=== PATIENT | male | born 1955 | race Caucasian/White ===

== ENCOUNTER 2017-03-25 13:56 | Observation (INO) ==
[2017-03-25] MEDS ORDERED: Nitroglycerin 0.4 MG TAB.SUBL SL ONE (14:34)
[2017-03-25] MEDS ORDERED: Aspirin 81 MG TAB.CHEW PO ONE (14:34)
--- NOTE | 2017-03-25 14:38 | Emergency Department Note ---
Disposition Clinical Impression: Chest pain of uncertain etiology, Dyspnea Disposition: Admitted As Inpatient Condition: Critical Referrals: Mateo Francois CNP [Primary Care Provider] - Forms: ED Satisfaction Letter Time of Disposition: 16:01 Chest Pain HPI - General Chief Complaint: ED Shortness of Breath/Dyspnea Stated Complaint: ANG/CP Time Seen by Provider: 03/25/17 14:12 Source: patient Limitations: no limitations Vital Signs Reviewed: Yes Nursing Notes Reviewed: Yes - History of Present Illness HPI Narrative: Mr. Martínez, 61-year-old male, presents from home for evaluation of chest pain. Onset approximately one hour ago. Described as sharp, stabbing, substernal, with radiation down his left arm as well as interscapular leak and to his left jaw. Associated with dyspnea. He has had similar symptoms intermittently over the past week lasting approximately 30 minutes per episode and unrelated to rest versus exertion. His symptoms previously improved after a single sublingual nitroglycerin. Patient has no history of ACS; he was prescribed a nitroglycerin from a physician when he reported chest pain to that physician with no additional workup. PMH: Hypertension, hyperlipidemia, diabetes. No history of CAD, ACS, dysrhythmia, COPD. Habits: No smoking, no EtOH, no illicit substances. Severity scale (1-10): 7 - Related Data Home Medications Medication Instructions Recorded Confirmed Aspirin 81 mg PO DAILY 03/19/15 03/19/15 Fluticasone Propionate Nasal 1 spray NS DAILY 03/19/15 03/19/15 [Flonase] Nitroglycerin [Nitrostat] 0.4 mg SL Q5M PRN 03/19/15 03/19/15 Pravastatin Sodium [Pravachol] 40 mg PO HS 03/19/15 03/19/15 Qnasl 160 mcg NS DAILY 03/19/15 03/19/15 Quinapril/Hydrochlorothiazide 1 each PO DAILY 03/19/15 03/19/15 [Accuretic 10-12.5 mg Tablet] Sertraline [Zoloft] 100 mg PO DAILY 03/19/15 03/19/15 Tamsulosin [Flomax] 0.4 mg PO DAILY 03/19/15 03/19/15 Zolpidem Tartrate [Ambien Cr] 12.5 mg PO HS 03/19/15 03/19/15 metFORMIN [Glucophage] 1,000 mg PO HS 03/19/15 03/19/15 Previous Rx's Medication Instructions Recorded OxyCODONE/APAP 325 [Percocet 2 each PO Q4HR PRN #15 tablet 03/19/15 10325] Allergies Allergy/AdvReac Type Severity Reaction Status Date / Time No Known Allergies Allergy Verified 03/19/15 07:12 All systems ED: reviewed and negative except as stated. Review of Systems: As Per HPI Chest Pain PMH - Past Medical History Medical history: Reports: diabetes, hypertension, other Surgical history: Reports: appendectomy, other Psychiatric history: Reports: no psych history - Social History Smoking Status: Former smoker Alcohol use: Reports: none Drug use: Reports: none Physical Exam Vital Signs Reviewed General: Patient is alert, oriented, and in no acute distress. HEENT: No facial asymmetry. Head is normocephalic and atraumatic. Oral mucosa moist. Trachea midline. Cardiovascular: Heart regular rate and rhythm without clicks, rubs, gallops, or murmurs. No JVD. PMI nondisplaced. Respiratory: Symmetric chest rise with good respiratory effort. Bilateral breath sounds are clear without wheezing, crackles, or rhonchi. Abdomen: Obese. Bowel sounds present normoactive x-4 quadrants. Abdomen is soft, nondistended, and nontender. No organomegaly noted. Neuro: GCS 15. Skin: Warm, dry, intact. Psych: Patient's affect is appropriate for situation. - General Limitations: no limitations General appearance: alert, in no apparent distress Course Course Narrative: Patient presents from home for evaluation of chest pain. Story is highly suspicious for ACS. Patient did have a stress test one week ago at [facility]; records obtained. Pretesting hypertension was exacerbated by the test. Patient was chest pain-free and it was negative for ischemia. Even so, strongly recommend admission for chest pain rule out ACS. Chest x-ray unremarkable. Troponin 0.01; below the upper limit of normal. EKG unchanged and unremarkable. Patient self administered 2 sublingual nitroglycerin while in the amount. His pain improved substantially with the second. Nitroglycerin was taken 4-5 minutes apart. Patient received a single sublingual nitroglycerin while in the emergency department which completely resolved his pain. Systolic blood pressure after this was 99. Gentle IV fluids began. I discussed with the patient by clinical concerns and he is in agreement to coming into the hospital for continued evaluation. I discussed the patient with the admitting hospitalist, Dr. James, who agrees to accept the patient for continued evaluation and management. Vital Signs Temperature 97.7 F 03/25/17 13:57 Pulse Rate 80 03/25/17 13:57 Respiratory Rate 16 03/25/17 13:57 Blood Pressure 115/67 03/25/17 13:57 O2 Sat by Pulse Oximetry 95 03/25/17 13:57 Temperature 97.7 F 03/25/17 13:57 Pulse Rate 74 03/25/17 15:00 Respiratory Rate 14 03/25/17 15:00 Blood Pressure 99/69 03/25/17 15:00 O2 Sat by Pulse Oximetry 96 03/25/17 15:00 Oxygen Delivery Oxygen Delivery Room Air Chest Pain - Lab Data Result diagrams: 03/25/17 14:40 03/25/17 14:40 Lab Results 03/25/17 03/25/17 03/25/17 Range/Units 14:40 14:40 14:40 WBC 8.9 (4.3-11.1) K/mcL RBC 4.58 (4.19-5.50) M/mcL Hgb 13.7 (12.9-16.9) g/dL Hct 41.6 (37.5-50.1) % MCV 90.8 (83.0-100.0) fL MCH 29.9 (28.0-33.3) pg MCHC 32.9 (31.6-35.5) g/dL RDW 12.8 (11.5-14.5) % Plt Count 225 (140-400) K/mcL MPV 11.1 (9.4-12.4) fL Immature Gran % 0.3 (0-4) % Seg Neutrophils % 65.3 % Lymphocytes % 25.5 % Monocytes % 5.9 % Eosinophils % 1.9 % Basophils % 1.1 % Neutrophils # 5.8 (1.6-8.9) K/mcL Lymphocytes # 2.3 (0.6-4.6) K/mcL Monocytes # 0.5 (0.0-1.3) K/mcL Eosinophils # 0.2 (0.0-0.6) K/mcL Basophils # 0.1 (0.0-0.2) K/mcL PT 13.3 H (9.4-12.1) Seconds INR 1.2 APTT 29.3 (26.0-36.0) Seconds Sodium 134 L (136-145) mEq/L Potassium 4.5 (3.5-4.5) mEq/L Chloride 99 (98-109) mEq/L Carbon Dioxide 22 (19-29) mEq/L BUN 14 (8-26) mg/dL Creatinine 1.38 H (0.72-1.25) mg/dL Est GFR ( Amer) > 60 (> 60) Est GFR (Non-Af Amer) 53 L (> 60) BUN/Creatinine Ratio 10 (6-26) Glucose 157 H (70-99) mg/dL Calculated Osmolality 282 (280-300) Calcium 9.9 (8.6-10.8) mg/dL Troponin I (0-0.03) ng/mL 03/25/17 Range/Units 14:40 WBC (4.3-11.1) K/mcL RBC (4.19-5.50) M/mcL Hgb (12.9-16.9) g/dL Hct (37.5-50.1) % MCV (83.0-100.0) fL MCH (28.0-33.3) pg MCHC (31.6-35.5) g/dL RDW (11.5-14.5) % Plt Count (140-400) K/mcL MPV (9.4-12.4) fL Immature Gran % (0-4) % Seg Neutrophils % % Lymphocytes % % Monocytes % % Eosinophils % % Basophils % % Neutrophils # (1.6-8.9) K/mcL Lymphocytes # (0.6-4.6) K/mcL Monocytes # (0.0-1.3) K/mcL Eosinophils # (0.0-0.6) K/mcL Basophils # (0.0-0.2) K/mcL PT (9.4-12.1) Seconds INR APTT (26.0-36.0) Seconds Sodium (136-145) mEq/L Potassium (3.5-4.5) mEq/L Chloride (98-109) mEq/L Carbon Dioxide (19-29) mEq/L BUN (8-26) mg/dL Creatinine (0.72-1.25) mg/dL Est GFR ( Amer) (> 60) Est GFR (Non-Af Amer) (> 60) BUN/Creatinine Ratio (6-26) Glucose (70-99) mg/dL Calculated Osmolality (280-300) Calcium (8.6-10.8) mg/dL Troponin I 0.01 (0-0.03) ng/mL Heart Score - Score History: Highly Suspicious EKG: Non Specific repolarisation Disturbance Age: 45-65 Risk Factors: Equal/Greater than 3 risk factor or history of atherosclerotic disease Troponin: Less than normal limit HEART Score Total: 6 Attestation Statement - Attestation Attestation: Patient was seen with resident physician. I reviewed the history, physical, assessment and plan, and agree with the findings. I also personally evaluated this patient and had [id number] time with this patient. 61-year-old male presents to the emergency department with chest pain. Patient's had ongoing chest pain a pressure sensation in mid to left side of his chest radiating to his left arm associated with shortness of breath for some time. He said episodes last usually 5-15 minutes. He said today's lasted well over an hour. He has nitroglycerin at home. He said he took 200 resolved the pain. Patient apparently has a stress test approximately week ago at an outside facility. This test we reviewed the results and found that there was no abnormalities noted. Patient currently is pain-free. On examination vital signs are stable. ENT is unremarkable. Heart and lungs normal. Abdomen is soft and nontender. Extremities unremarkable. Neurologically intact. ED course labs did not reveal any acute abnormalities. EKG showed no acute ischemic changes. Chest x- ray was unremarkable and there is no acute disease process. Even though the patient has had a recent stress test his symptoms are very concerning for cardiac type disease. Both in terms of the description and resolution with nitroglycerin I feel that the patient requires additional evaluation and treatment. We will admit to the hospitalist service for additional evaluation and treatment. Hemodynamically he remained stable while in the emergency department. I agree with the resident physician assessment and plan.
[2017-03-25 14:45] LABS: Basophils # 0.1 K/mcL (0.0-0.2); Basophils % 1.1 %; Eosinophils # 0.2 K/mcL (0.0-0.6); Eosinophils % 1.9 %; Hematocrit 41.6 % (37.5-50.1); Hemoglobin 13.7 g/dL (12.9-16.9); Immature Granulocytes % 0.3 % (0-4); Lymphocytes # 2.3 K/mcL (0.6-4.6); Lymphocytes % 25.5 %; Mean Corpuscular HGB Conc 32.9 g/dL (31.6-35.5); Mean Corpuscular Hemoglobin 29.9 pg (28.0-33.3); Mean Corpuscular Volume 90.8 fL (83.0-100.0); Mean Platelet Volume 11.1 fL (9.4-12.4); Monocytes # 0.5 K/mcL (0.0-1.3); Monocytes % 5.9 %; Neutrophils # 5.8 K/mcL (1.6-8.9); Platelet Count 225 K/mcL (140-400); Red Blood Count 4.58 M/mcL (4.19-5.50); Red Cell Distribution Width 12.8 % (11.5-14.5); Segmented Neutrophils % 65.3 %
[2017-03-25 14:52] LABS: INR 1.2; Prothrombin Time 13.3 Seconds (9.4-12.1)
[2017-03-25 14:55] LABS: Activated Partial Thrombo Time 29.3 Seconds (26.0-36.0)
[2017-03-25 14:58] LABS: BUN/Creatinine Ratio 10 (6-26); Blood Urea Nitrogen 14 mg/dL (8-26); Calcium 9.9 mg/dL (8.6-10.8); Carbon Dioxide 22 mEq/L (19-29); Chloride 99 mEq/L (98-109); Glucose 157 mg/dL (70-99); Osmolality,Calculated 282 (280-300); Potassium 4.5 mEq/L (3.5-4.5); Sodium 134 mEq/L (136-145); eGFR For African Americans > 60 (> 60); eGFR For Non-African Americans 53 (> 60)
[2017-03-25] MEDS ORDERED: 0.9 % Sodium Chloride 1,000 ML IVC ONE (15:05)
[2017-03-25] MEDS ORDERED: Acetaminophen 325 MG TABLET PO PRN (17:28)
[2017-03-25] MEDS ORDERED: Naloxone 0.4 MG/ML INJ IVP PRN (17:28)
[2017-03-25] MEDS ORDERED: Nitroglycerin 0.4 MG TAB.SUBL SL PRN (17:32)
--- NOTE | 2017-03-25 17:47 | Internal Med History&Physical ---
Date of Encounter: 03/25/17 Time of Encounter: 17:43 Assessment and Plan (1) Chest pain of uncertain etiology Current visit: Yes Status: Acute 61/male Came to emergency room for chest pain. Heart score: 4 ZIYAD score: 3 Noted that patient has a MEERA. EKG unremarkable. Plan: Admit as observation. Aspirin/simvastatin/metoprolol Echocardiogram Cycle troponin If the troponin negative/echocardiogram within normal limits: Please consider stress test. If troponins are elevated and please call cardiology. Repeat labs tomorrow to evaluate renal function. (2) Dyspnea Current visit: Yes Status: Acute At this time I am not sure what is the reason for underlying dyspnea it can be multifactorial. We will closely observe this patient. We will get echocardiogram done. Qualifiers: Dyspnea type: unspecified Qualified Code(s): R06.00 - Dyspnea, unspecified (3) Diabetes mellitus Current visit: Yes Status: Acute Patient is type 2 diabetes mellitus and is presently on insulin. We will resume home medication. Close monitoring of blood sugar . 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 Qualified Code(s): E11.8 - Type 2 diabetes mellitus with unspecified complications (4) Hypertension Current visit: Yes Status: Acute Her blood pressure was low initially but now it is very well controlled and we will resume home medication Qualifiers: Hypertension type: essential hypertension Qualified Code(s): I10 - Essential (primary) hypertension (5) DVT prophylaxis Current visit: Yes Status: Acute Heparin Medical decision making: This patient has a moderate to severe risk of worsening in spite of being on appropriate medication due to underlying multiple complex comorbid condition Internal Medicine - H&P: HPI Chief complaint: chest pain Admitted From: Emergency Dept Plans for Post Hospital Care: Home History of present illness: PCP: Dr Cheng Brief past medical history: Diabetic, hypertension, morbid obesity, obstructive sleep apnea, arthritis, patient claims that more than 10 years ago he has undergone cardiac catheterization and he has 2 stents placed in. History of present illness: Patient is celebrating his marriage anniversary today. It was noted that around 9 AM in the morning patient had a left-sided precordial excruciating chest pain which was nonradiating and localized to begin with followed by radiating to his left arm and left shoulder. Patient was nauseous and had a small amount of vomitus after the prolonged nausea. Patient claims that the pain was not subsided by 2 nitroglycerin tablets. This was the reason patient came to the hospital for further evaluation. At the time of my examination patient's was sitting at bedside. Patient denies shortness of breath, abdominal pain, diarrhea, constipation or dizziness. Workup in the emergency room: Patient was evaluated in the emergency room. Basic labs were drawn. Noted that patient has elevated creatinine. His CBC was normal. His EKG and troponin were normal. There was a IV fluids were going on in view of possible MEERA. Reason for admission: Chest pain to rule out ACS. Acute kidney injury. Family history: Noncontributory Past Med Surg Social Fam HX - Past Medical History Medical history: diabetes, hypertension, other Psychiatric history: no psych history - Past Surgical History Surgical History: appendectomy, other - Social History Smoking Status: Former smoker Smokeless Tobacco Status: Yes (1 can "dip" day) Alcohol use: none Drug use: none - Family History Father Living Status: Hx Family Cardiac Disorders: Yes Mother Living Status: Hx Family Cardiac Disorders: Yes Internal Medicine - H&P: Meds Aspirin 81 mg PO DAILY 03/19/15 [History] Fluticasone Propionate Nasal [Flonase] 50 mcg NS DAILY 03/19/15 [History] Nitroglycerin [Nitrostat] 0.4 mg SL Q5M PRN 03/19/15 [History] Pravastatin Sodium [Pravachol] 40 mg PO HS 03/19/15 [History] Sertraline [Zoloft] 100 mg PO DAILY 03/19/15 [History] Tamsulosin [Flomax] 0.4 mg PO DAILY 03/19/15 [History] Zolpidem Tartrate [Ambien Cr] 12.5 mg PO HS 03/19/15 [History] metFORMIN [Glucophage] 1,000 mg PO BID 03/19/15 [History] Gabapentin [Neurontin] 600 mg PO TID 03/25/17 [History] Insulin Glargine,Hum.rec.anlog [Lantus Solostar] 20 unit SQ HS 03/25/17 [History ] Isosorbide MONOnitrate (24 HR) [Imdur] 30 mg PO DAILY 03/25/17 [History] Meloxicam [Mobic] 15 mg PO DAILY 03/25/17 [History] Metoprolol XL (24 HR) Succ [Toprol XL] 50 mg PO DAILY 03/25/17 [History] Pioglitazone HCl [Pioglitazone HCl] 30 mg PO DAILY 03/25/17 [History] Quinapril/Hydrochlorothiazide [Quinapril-Hctz 20-25 mg Tab] 1 tab PO DAILY 03/25 [History] 3 Allergy/AdvReac Type Severity Reaction Status Date / Time No Known Allergies Allergy Verified 03/19/15 07:12 All Systems PM: A 10-system review of systems was performed and is negative for pertinent findings except as documented above in the HPI. - Constitutional Constitutional: no chills, no fever(s), no night sweats - EENT Eyes: no change in vision, no discharge, no pain, no photophobia Ears: no ear discharge, no ear pain, no tinnitus Nose, mouth and throat: no dysphagia, no nasal discharge, no neck pain, no sore throat - Cardiovascular Cardiovascular ROS IM: chest pain, diaphoresis, dyspnea, dyspnea on exertion, edema, no lightheadedness, no palpitations, no syncope - Respiratory Respiratory: no cough, no dyspnea, no wheezing, no excessive phlegm production - Gastrointestinal Gastrointestinal: no abdominal pain, no diarrhea, no hematemesis, no hematochezia, no melena, no nausea, no vomiting - Musculoskeletal Musculoskeletal ROS IM: no numbness, no tingling - Integumentary Integumentary IM: no rash, no unusual bruising - Neurological Neurological ROS: no confusion, no convulsions, no focal weakness, no numbness, no tingling, no tremor(s) - Hematologic/Lymphatic Hematologic/Lymphatic: no easy bruising - Constitutional Vitals: Temp Pulse Resp BP Pulse Ox 97.5 F L 88 15 107/56 95 03/25/17 16:59 03/25/17 16:59 03/25/17 16:59 03/25/17 16:59 03/25/17 16:59 General appearance: Present: A&O X 3, pleasant, no acute distress, answers questions appropriately - Head Head exam: Present: atraumatic, normocephalic - Eye Eye exam: Present: PERRL, conjuntiva pink, sclera anicteric Pupils: Present: PERRL - Neck Neck exam general surgery: Present: supple, trachea midline. Absent: lymphadenopathy - Respiratory Respiratory exam: Present: CTAB. Absent: accessory muscle use, rales, rhonchi, wheezes - Cardiovascular Cardiovascular exam: Present: RRR, +S1, +S2. Absent: diastolic murmur, gallop, rubs, systolic murmur - GI/Abdominal GI/Abdominal exam: Present: normal bowel sounds, soft, no peritoneal signs. Absent: distended, tenderness - Extremities Exam Extremities exam: Present: warm, radial pulses palpable and symmetrical. Absent : calf tenderness, cyanotic, pedal edema - Neurological Exam Neurological exam: Present: CN II-XII intact, oriented X3, no focal deficits. Absent: pronater drift, facial droop, speech deficit - Skin Skin exam: Present: dry, intact Internal Med - H&P Results - Labs CBC & Chem 7: 03/25/17 14:40 03/25/17 14:40 Labs: Case results discussed with the emergency room physician.
[2017-03-25] MEDS ORDERED: Dextrose Gel 15 GM PO PRN ×2 (17:54)
[2017-03-25] MEDS ORDERED: D5% in Water 1,000 ML IVC PRN (17:54)
[2017-03-25] MEDS ORDERED: *HR* Dextrose 50 % in Water (Syg) 50 ML SYRINGE IVP PRN (17:54)
[2017-03-25] MEDS: *HR* Heparin 5,000 UNIT/ML VIAL SQ SCH (19:10)
[2017-03-25] MEDS ORDERED: Insulin DETEMIR 100 UNIT/ML X5UNITS SQ SCH (21:00)
[2017-03-25] MEDS: Gabapentin 300 MG CAPSULE PO SCH (21:05)
[2017-03-26 02:43] LABS: INR 1.2; Prothrombin Time 13.1 Seconds (9.4-12.1)
[2017-03-26 02:46] LABS: Activated Partial Thrombo Time 28.5 Seconds (26.0-36.0); Basophils # 0.1 K/mcL (0.0-0.2); Basophils % 1.1 %; Eosinophils # 0.3 K/mcL (0.0-0.6); Eosinophils % 2.8 %; Hematocrit 37.9 % (37.5-50.1); Hemoglobin 12.7 g/dL (12.9-16.9); Immature Granulocytes % 0.3 % (0-4); Lymphocytes # 2.8 K/mcL (0.6-4.6); Lymphocytes % 31.2 %; Mean Corpuscular HGB Conc 33.5 g/dL (31.6-35.5); Mean Corpuscular Hemoglobin 30.8 pg (28.0-33.3); Mean Corpuscular Volume 91.8 fL (83.0-100.0); Monocytes # 0.6 K/mcL (0.0-1.3); Neutrophils # 5.1 K/mcL (1.6-8.9); Platelet Count 182 K/mcL (140-400); Red Blood Count 4.13 M/mcL (4.19-5.50); Red Cell Distribution Width 12.9 % (11.5-14.5); Segmented Neutrophils % 57.6 %
[2017-03-26 02:55] LABS: Alanine Aminotransferase 49 Units/L (0-55); Albumin 3.7 g/dL (3.5-5.0); Albumin/Globulin Ratio 0.9 (1.1-2.2); Alkaline Phosphatase 96 Units/L (38-126); Aspartate Amino Transferase 54 Units/L (5-34); BUN/Creatinine Ratio 16 (6-26); Bilirubin,Total 0.6 mg/dL (0.2-1.2); Blood Urea Nitrogen 17 mg/dL (8-26); Carbon Dioxide 26 mEq/L (19-29); Chloride 100 mEq/L (98-109); Chol/HDL Ratio 4.4 (0-4.9); Cholesterol 191 mg/dL (< 200); Globulin 3.9 g/dL (2.4-3.5); Glucose 164 mg/dL (70-99); HDL Cholesterol 43 mg/dL (40-59); LDL Cholesterol,Calculated 89 mg/dL (0-99); Magnesium 2.1 mg/dL (1.6-2.6); Osmolality,Calculated 287 (280-300); Phosphorous 3.1 mg/dL (2.3-4.7); Sodium 136 mEq/L (136-145); Total Protein 7.6 g/dL (6.0-8.3); Triglycerides 294 mg/dL (< 150); eGFR For African Americans > 60 (> 60); eGFR For Non-African Americans > 60 (> 60)
[2017-03-26] MEDS: *HR* Heparin 5,000 UNIT/ML VIAL SQ SCH (08:27)
[2017-03-26] MEDS: Insulin LISPRO 300 UNITS/3 ML VIAL SQ SCH ×2 (08:29→11:50)
[2017-03-26] MEDS ORDERED: Aspirin 81 MG TAB.CHEW PO SCH (09:00)
[2017-03-26] MEDS ORDERED: Metoprolol XL (24 HR) Succ 50 MG TAB.ER.24H PO SCH (09:00)
[2017-03-26] MEDS ORDERED: Isosorbide MONOnitrate (24 HR) 30 MG TAB.ER.24H PO SCH (09:00)
[2017-03-26] MEDS ORDERED: Regadenoson 0.4 MG/5 ML SYRINGE IVP ONE (09:05)
--- NOTE | 2017-03-26 09:17 | Discharge Summary ---
Date of Encounter: 03/26/17 Time of Encounter: 09:05 - Discharge Diagnosis (1) Chest pain of uncertain etiology Priority: Primary Status: Acute Comments: Pt reports sudden onset left chest pain and dyspnea while shopping yesterday. pt reports the pain as dull, deep, and an ache, with radiation to left jaw, neck , and arm. He reports nausea. Pt states that he was so SOB that he was unable to walk or speak. Lasted approximately 1 hour. Prior stress test at [facility] about 10 days ago. I requested that cardiology review results, it is negative and pt needs better control of his BP. Chest xray negative. Troponins negative. Pt denies chest pain currently or since arrival. Echo report says that EF is probably normal, no significant valvular dysfunction. Pt initially was going to sign out AMA due to "I have too many things to do and the ER told me that I would be discharged this morning." His convinced him to stay to get test results. He was inpatient for the majority of the day, his blood pressures been well controlled since he has been here. I did not change any medications. He will need follow-up with cardiology on an outpatient basis. He is stable and appropriate for discharge. (2) Dyspnea Priority: Secondary Status: Resolved Comments: Pt reports dyspnea associated with chest pain. Resolved now. Pt is not requiring 02, lungs are clear and diminished throughout, no wheezing, rales, ronchi, stridor, no respiratory distress. pt denies now. Chest xray negative. No leukocytosis. Echo results as above. Chest X-Ray 03/25/17 14:34 IMPRESSION: No acute cardiopulmonary findings. D/ / Kelly Kwok MD / Kelly Kwok MD Interpreting Provider: Kelly Kwok MD Qualifiers: Dyspnea type: unspecified Qualified Code(s): R06.00 - Dyspnea, unspecified (3) Diabetes mellitus Priority: Secondary Status: Chronic Comments: Continue home medications and accu check regimen. Qualifiers: Diabetes mellitus type: type 2 Diabetes mellitus complication status: with unspecified complications Diabetes mellitus assisted insulin use: unspecified assisted insulin use status Qualified Code(s): E11.8 - Type 2 diabetes mellitus with unspecified complications (4) Hypertension Priority: Secondary Status: Chronic Comments: Blood pressure is well controlled, continue home medication regimen. Qualifiers: Hypertension type: essential hypertension Qualified Code(s): I10 - Essential (primary) hypertension (5) DVT prophylaxis Priority: Primary Status: Acute Comments: Heparin SQ daily, pt is ambulatory. - Discharge Medications Home Medications: Aspirin 81 mg PO DAILY 03/19/15 [History] Fluticasone Propionate Nasal [Flonase] 50 mcg NS DAILY 03/19/15 [History] Nitroglycerin [Nitrostat] 0.4 mg SL Q5M PRN 03/19/15 [History] Pravastatin Sodium [Pravachol] 40 mg PO HS 03/19/15 [History] Sertraline [Zoloft] 100 mg PO DAILY 03/19/15 [History] Tamsulosin [Flomax] 0.4 mg PO DAILY 03/19/15 [History] Zolpidem Tartrate [Ambien Cr] 12.5 mg PO HS 03/19/15 [History] metFORMIN [Glucophage] 1,000 mg PO BID 03/19/15 [History] Gabapentin [Neurontin] 600 mg PO TID 03/25/17 [History] Insulin Glargine,Hum.rec.anlog [Lantus Solostar] 20 unit SQ HS 03/25/17 [History ] Isosorbide MONOnitrate (24 HR) [Imdur] 30 mg PO DAILY 03/25/17 [History] Meloxicam [Mobic] 15 mg PO DAILY 03/25/17 [History] Metoprolol XL (24 HR) Succ [Toprol Xl] 50 mg PO DAILY 03/25/17 [History] Pioglitazone HCl 30 mg PO DAILY 03/25/17 [History] Quinapril/Hydrochlorothiazide [Quinapril-Hctz 20-25 mg Tab] 1 tab PO DAILY 03/25 [History] Allergies/Adverse Reactions: 3 Allergy/AdvReac Type Severity Reaction Status Date / Time No Known Allergies Allergy Verified 03/19/15 07:12 Procedures/tests Complete & Pending: Procedures Performed prior 72 hours Category Date Time Status NM ben perf SPECT multi [NM] Routine Exams 03/26/17 08:03 Ordered EV echocardiogram Routine Y 03/26/17 17:31 Completed SP pharm nuclear stress Routine Y 03/26/17 08:03 Ordered Date of admission: 03/25/17 16:10 Primary care physician: Mateo Francois CNP Discharging clinician: Fadia Tovar Anticipated date of discharge: 03/26/17 - Patient Status Disposition: Home, Self-Care Condition: Good Functional capacity at discharge: independent ambulation Overall status at discharge: patient is back to baseline - Discharge Instructions Follow Up With: Mateo Francois CNP [Primary Care Provider] - Additional Instructions: Follow up with your PCP in the next 7-10 days for a recheck. Follow up with your dry man for a recheck. Return to your normal activites as tolerated. Resume your diabetic, heart healthy diet. Return to the ER as needed for any other problems or concerns, or if your symptoms return or worsen. - Diet and Activity Activity: increase activity as tolerated Diet: diabetic diet, low fat, low cholesterol Interval History: Please see assessment and plan for hospital course. Hospital course: Mr. Martínez is a 61 year old male - Time Spent with Patient Total time spent providing and/or coordinating discharge services: Less than 30 minutes - Constitutional Vitals: Temp Pulse Resp BP Pulse Ox 98.3 F 76 16 122/74 96 03/26/17 08:15 03/26/17 08:15 03/26/17 08:15 03/26/17 08:15 03/26/17 08:15 General appearance: Present: cooperative, A&O X 3, pleasant, no acute distress, obese, answers questions appropriately - Head Head exam: Present: atraumatic, normal inspection, normocephalic - Eye Eye exam: Present: normal appearance, conjuntiva pink, sclera anicteric - Neck Neck exam general surgery: Present: supple, trachea midline. Absent: lymphadenopathy, tenderness - Respiratory Respiratory exam: Present: decreased breath sounds, CTAB. Absent: accessory muscle use, chest wall tenderness, rales, respiratory distress, rhonchi, wheezes - Cardiovascular Cardiovascular exam: Present: RRR, +S1, +S2. Absent: bradycardia, diastolic murmur, gallop, rubs, systolic murmur, tachycardia - GI/Abdominal GI/Abdominal exam: Present: distended, normal bowel sounds, soft, no peritoneal signs. Absent: hepatomegaly, tenderness - Extremities Exam Extremities exam: Present: normal capillary refill, normal inspection, warm, radial pulses palpable and symmetrical. Absent: calf tenderness, cyanotic, pedal edema, tenderness - Neurological Exam Neurological exam: Present: alert, oriented X3, no focal deficits. Absent: facial droop, speech deficit - Skin Skin exam: Present: dry, intact, normal color, warm. Absent: rash
[2017-03-26] MEDS: Gabapentin 300 MG CAPSULE PO SCH ×2 (10:26→15:04)
[2017-03-26 15:31] VITALS: BP 116/69
--- NOTE | 2017-03-26 18:06 | Electrocardiograph Report ---
[place] [id number] Test Date: 2017-03-25 Pat Name: Wilver Martínez Department: 104 Room: 3B Gender: M Scientist Immunology: : 1955 Requested By: Brayden Schultz Order Number: [id number] Reading MD: Emil Arango MD Measurements Intervals [place] Rate: 81 P: 27 IL: 175 QRS: 27 QRSD: 81 T: 30 QT: 354 QTc: 392 Interpretive Statements SINUS RHYTHM Electronically Signed On 03-26-2017 18:04:16 EST by Emil Arango MD
== END 2017-03-26 17:02 | disposition home or self-care (01) ==
LOC: 3BNU 13:56 → EMEROO 13:56 → 3BNU 16:35
PROVIDERS: ADMIT Registered Nurse; ATTEND Registered Nurse